=== PATIENT | male | born 2000 | race Two or more races ===

== ENCOUNTER 2023-06-09 10:06 | Emergency (ER) | payer BC, OTHER ==
[~2023-06-09] VITALS: Ht 177.8 cm; Wt 68.0 kg
[~2023-06-09 10:06] MED LIST: SPACMIS
[2023-06-09 11:47] VITALS: BP 119/84; PULSE 70; RESP 17; TEMP 98.2; O2SAT 99
== END 2023-06-09 12:32 | disposition home or self-care (01) ==
LOC: ER 10:06
DX: N50.89 Other specified disorders of the male genital organs (principal); Z79.899 Other long term (current) drug therapy